=== PATIENT | male | born 1980 | race Caucasian/White ===

== ENCOUNTER 2018-06-11 15:25 | Emergency (ER) | payer OTHER ==
--- NOTE | 2018-06-11 15:55 | RAD ---
Indication: LEFT ankle pain following twisting injury. Comparison: February 12, 2013 Technique: AP, mortise, and lateral views LEFT ankle. Report: Negative for fracture or malalignment. Unremarkable soft tissue contours. IMPRESSION: #. Negative exam.
--- NOTE | 2018-06-11 16:28 | ED ---
Lower Extremity - HPI Summary HPI Summary: Patient is a 30-year-old male presenting to the ED with left lateral ankle injury which he inverted upon walking up the stairs approximately 2 hours [employer]. He has been icing since that time. He endorses slight ecchymosis, and significant swelling. He has been ambulatory, but has been walking on the heel. Pain is currently a 5/10, constant and aching, worse with ambulation, better with rest. Worse with flexion and extension of the ankle. Denies any pain to the heel or lower extremity otherwise. He has not taken anything over- the-counter for relief. - History of Current Complaint Chief Complaint: EDExtremityLower Stated Complaint: LT ANKLE INJURY Time Seen by Provider: 06/11/18 15:33 Hx Obtained From: Patient Onset of Pain: Hours Onset/Duration: Hours Severity Initially: Moderate Severity Currently: Moderate Pain Intensity: 6 Pain Scale Used: 0-10 Numeric Timing: Constant Location: Is Discrete @ - left lateral ankle pain Character Of Pain: Aching Associated Signs And Symptoms: Positive: Swelling, Bruising. Negative: Redness Aggravating Factor(s): Standing, Ambulation Alleviating Factor(s): Rest Able to Bear Weight: Yes - Risk Factors Gout Risk Factors: Negative DVT Risk Factors: Negative Septic Arthritis Risk Factor: Negative - Allergies/Home Medications Allergies/Adverse Reactions: Allergies Allergy/AdvReac Type Severity Reaction Status Date / Time No Known Allergies Allergy Verified 06/11/18 15:30 Home Medications: Home Medications NK [No Home Medications Reported] 06/11/18 [History Confirmed 06/11/18] PMH/Surg Hx/FS Hx/Imm Hx Previously Healthy: Yes Endocrine/Hematology History: Denies: Hx Diabetes, Hx Thyroid Disease Cardiovascular History: Denies: Hx Peripheral Vascular Disease Musculoskeletal History: Denies: Hx Arthritis, Hx Rheumatoid Arthritis, Hx Osteoporosis Sensory History: Denies: Hx Cataracts, Hx Contacts or Glasses, Hx Glaucoma Opthamlomology History: Denies: Hx Cataracts, Hx Contacts or Glasses, Hx Glaucoma Neurological History: Denies: Hx Headaches, Hx Seizures, Hx Transient Ischemic Attacks (TIA) Psychiatric History: Denies: Hx Anxiety, Hx Depression - Immunization History Hx Pertussis Vaccination: No Immunizations Up to Date: Yes Infectious Disease History: No Infectious Disease History: Denies: History Other Infectious Disease, Traveled Outside the [place] in Last 30 Days - Family History Known Family History: Positive: Hypertension - Social History Occupation: Employed Full-time Lives: With Family Alcohol Use: None Hx Substance Use: No Substance Use Type: Reports: None Hx Tobacco Use: No Smoking Status (MU): Never Smoked Tobacco Review of Systems Negative: Fever, Chills, Fatigue, Skin Diaphoresis Negative: Palpitations Negative: Shortness Of Breath, Cough Genitourinary: Negative Positive: no symptoms reported, see HPI Positive: Arthralgia, Myalgia Positive: Bruising. Negative: Rash Neurological: Negative Psychological: Normal All Other Systems Reviewed And Are Negative: Yes Physical Exam Triage Information Reviewed: Yes Vital Signs On Initial Exam: Initial Vitals Temp Pulse Resp BP Pulse Ox 98.2 F 96 16 154/94 97 06/11/18 15:30 06/11/18 15:30 06/11/18 15:30 06/11/18 15:30 06/11/18 15:30 Vital Signs Reviewed: Yes Appearance: Positive: Well-Appearing, Well-Nourished Skin: Positive: Warm, Skin Color Reflects Adequate Perfusion Head/Face: Positive: Normal Head/Face Inspection Eyes: Positive: EOMI, DONNA Neck: Positive: Supple, No Lymphadenopathy Respiratory/Lung Sounds: Positive: Breath Sounds Present Cardiovascular: Positive: RRR, Pulses are Symmetrical in both Upper and Lower Extremities Musculoskeletal: Positive: Pain @ - left lateral ankle sprain Neurological: Positive: Speech Normal Psychiatric: Positive: Normal, Affect/Mood Appropriate Diagnostics - Vital Signs Vital Signs Temp Pulse Resp BP Pulse Ox 06/11/18 15:30 98.2 F 96 16 154/94 97 - Laboratory Lab Statement: Any lab studies that have been ordered have been reviewed, and results considered in the medical decision making process. Lower Extremity Course/Dx - Course Course Of Treatment: During the course of treatment, the patient is evaluated for left ankle injury. Difficulty with flexion and extension, eversion and inversion of the ankle. Rest and ice with significant improvement. X-ray obtained which shows no acute fracture. There is significant swelling over the deltoid and ATFL ligaments. Encouraged ibuprofen, gel splint, crutches and follow-up with our orthopedic physician. - Diagnoses Differential Diagnosis/HQI/PQRI: Positive: Sprain, Strain Provider Diagnoses: Ankle sprain Discharge - Sign-Out/Discharge Documenting (check all that apply): Patient Departure - Discharge Plan Condition: Stable Disposition: HOME Patient Education Materials: Ankle Sprain (DC), Ankle Stirrup Splint (ED) Referrals: Elliott Boyd MD [Primary Care Provider] - Wicho Medina MD [Medical Doctor] - Additional Instructions: Please follow up with ortho Crutches ibuprofen 600mg three times daily Ice Elevation This is like a sprain, but should be re-evaluated - Billing Disposition and Condition Condition: STABLE Disposition: Home
[2018-06-11 16:39] VITALS: BP 145/93
== END 2018-06-11 16:38 | disposition home or self-care (01) ==
LOC: ED 15:25
DX: S93.402A Sprain of unspecified ligament of left ankle, initial encounter (principal); X50.9XXA Other and unspecified overexertion or strenuous movements or postures, initial encounter; Y92.9 Unspecified place or not applicable
CPT/HCPCS: 99282